=== PATIENT | female | born 1945 | race Caucasian/White ===

== ENCOUNTER 2017-03-03 07:45 | Day surgery (SDC) | payer MEDICARE ==
[2017-02-26 11:59] VITALS: BMI 27.4
[~2017-03-03 07:45] MED LIST: LACTATED RINGERS 1,000 ML IV SCH; LIDOCAINE 1% 20 ML VIAL (10MG/ML) FOR IV START INTRADERMA PRN
[2017-03-03 08:06] VITALS: RESP 16; TEMP 97.1
[2017-03-03] MEDS ORDERED: PROPOFOL 10 MG/ML 20 ML VIAL IV ONE (08:48)
--- NOTE | 2017-03-03 08:58 | P.GSHP ---
History of Present Illness H&P Date: 03/03/17 Chief Complaint: Screening colonoscopy This a 71-year-old female referred from Dr. Gastelum. Patient presents today for screening colonoscopy. She denies any significant GI complaints. - Constitutional Constitutional: Reports as per HPI Past Medical History Past Medical History: Cancer, CVA/TIA, Hyperlipidemia Additional Past Medical History / Comment(s): hx nonhodgkins lymphoma, hiatal hernia History of Any Multi-Drug Resistant Organisms: None Reported Additional Past Surgical History / Comment(s): lung surgery x2 to remove tumors , cancerous lesion removed from rt eyelid, lt eye surgery replaced tear duct Past Anesthesia/Blood Transfusion Reactions: No Reported Reaction Smoking Status: Former smoker Past Alcohol Use History: None Reported Additional Past Alcohol Use History / Comment(s): smoked 50 years 1 ppd quit 2008 Past Drug Use History: None Reported - Past Family History Father Family Medical History: Cancer Mother Additional Family Medical History / Comment(s): aneurysm Sister(s) Family Medical History: Cancer Medications and Allergies Home Medications Medication Instructions Recorded Confirmed Type Aspirin [Adult Low Dose Aspirin EC] 2 tab PO DAILY 02/26/17 03/03/17 History Atorvastatin [Lipitor] 10 mg PO Q48H 02/26/17 03/03/17 History Calcium Carbonate/Vitamin D3 1 each PO DAILY 02/26/17 03/03/17 History [Calcium 500-Vit D3 600 Tablet] Escitalopram [Lexapro] 10 mg PO DAILY 02/26/17 03/03/17 History Loratadine [Claritin] 10 mg PO HS 02/26/17 03/03/17 History Multivitamins, Thera [Multivitamin 1 tab PO DAILY 02/26/17 02/26/17 History (formulary)] [place]-3 Fatty Acids/Fish Oil [Fish 1 each PO DAILY 02/26/17 03/03/17 History Oil 1,000 mg Softgel] Ranitidine HCl [Zantac] 150 mg PO HS 02/26/17 03/03/17 History Ubidecarenone [Co Q-10] 30 mg PO DAILY 02/26/17 03/03/17 History Allergies Allergy/AdvReac Type Severity Reaction Status Date / Time No Known Allergies Allergy Verified 02/26/17 11:25 Surgical - Exam Vital Signs Temp Pulse Resp BP Pulse Ox 97.1 F L 69 16 121/81 96 05/22/17 08:05 03/03/17 08:05 03/03/17 08:05 03/03/17 08:05 03/03/17 08:05 - General well developed, no distress - Eyes PERRL - ENT normal pinna - Neck no masses - Respiratory normal expansion - Cardiovascular Rhythm: regular - Abdomen Abdomen: soft, non tender Assessment and Plan Plan: We'll perform screening colonoscopy.
--- NOTE | 2017-03-03 09:13 | P.OP ---
Date of Procedure: 03/03/17 Preoperative Diagnosis: Screening colonoscopy Postoperative Diagnosis: Internal and external hemorrhoids Procedure(s) Performed: Colonoscopy Implants: Anesthesia: MAC Surgeon: Ankit Orozco Pathology: none sent Condition: stable Disposition: PACU Indications for Procedure: Operative Findings: Description of Procedure: The patient's placed on the endoscopy table in the lateral position. She received IV sedation. Digital rectal exam was performed which revealed internal and external hemorrhoids. The flexible colonoscope was then placed patient anus and passed throughout the entire colon. The ileocecal valve was visualized. The cecum, ascending and transverse colon appeared normal. In the descending and sigmoid colon was a few scattered diverticula. Scope was brought back the rectum and this appeared normal. Scope withdrawn the patient and internal and external hemorrhoids are noted the anus.
[2017-03-03 09:40] VITALS: BP 103/75; PULSE 53
== END 2017-03-03 10:06 | disposition home or self-care (01) ==
LOC: ORWHC2ENDO 07:45
PROVIDERS: ATTEND Surgery
DX: Z12.11 Encounter for screening for malignant neoplasm of colon (principal); K57.30 Diverticulosis of large intestine without perforation or abscess without bleeding; K64.8 Other hemorrhoids; K64.4 Residual hemorrhoidal skin tags; K44.9 Diaphragmatic hernia without obstruction or gangrene; Z85.118 Personal history of other malignant neoplasm of bronchus and lung; E78.5 Hyperlipidemia, unspecified; Z86.73 Personal history of transient ischemic attack (TIA), and cerebral infarction without residual deficits; Z87.891 Personal history of nicotine dependence; Z85.72 Personal history of non-Hodgkin lymphomas; Z79.82 Long term (current) use of aspirin; Z79.899 Other long term (current) drug therapy
CPT/HCPCS: J2704; G0121; 45378

== ENCOUNTER → 2018-09-28 | Outpatient (CLI) | payer MEDICARE ==
--- NOTE | 2018-09-28 15:36 | BD ---
EXAMINATION TYPE: Axial Bone Density DATE OF EXAM: 09/28/2018 COMPARISON: 09/10/2004 CLINICAL HISTORY: 73-year-old female age-related osteoporosis Height: 61 IN Weight: 154 LBS FRAX RISK QUESTIONS: History of Fracture in Adulthood: RT WRIST FX AGE 68 RISK FACTORS HISTORY OF: History of Wrist Fracture: YES RT WRIST AGE 68 Family History of Osteoporosis: YES MOTHER Active: YES Diet low in dairy products/other sources of calcium: YES Postmenopausal woman: AGE 44 Take estrogen and/or progesterone medications: NOT NOW How long: AGE 44-48 Lost more than 2 inches in height since high school: YES 10/14" MEDICATIONS: Osteoporosis Medications: NOT NOW Which medication: Fosamax How Lon MONTHS Additional Medications: LEXAPRO, LIPITOR,RANITIDINE, LORATIDINE,ASPIRIN, ALPRAZOLAM, MULTI VIT, FISH OIL , COQ10, Additional History: NON HODGEKINS LYMPHOMA WITH RADIATION ON EYELID EXAM MEASUREMENTS: Bone mineral densitometry was performed using the [employer] System. Bone mineral density as measured about the Lumbar spine is: ----- L1-L4(G/cm2): 1.075 T Score Values are as follows: ----- L2: -0.6 ----- L3: -0.7 ----- L4: -0.2 ----- L1-L4: -0.9 Bone mineral density has: Increased 18.6% since study of: 09/10/2004 Bone mineral density about the R hip (g/cm2): 0.737 Bone mineral density about the L hip (g/cm2): 0.798 T Score values are as follows: -----R Neck: -2.2 -----L Neck: -1.7 -----R Total: -2.1 -----L Total: -1.9 Bone mineral density has: Increased 0.5% since study of: 09/10/2004 IMPRESSION: Osteopenia (T Score between -2.5 and -1). There is slightly increased risk of fracture and the patient may be considered for treatment. Re-Screen 2-5 years. NOTE: T-SCORE=SD OF THE YOUNG ADULT MEAN.
--- NOTE | 2018-09-29 11:26 | MM ---
Reason for exam: screening (asymptomatic). Last mammogram was performed 1 year ago. History: Patient is postmenopausal and has history of other cancer at age 66. Took estrogen for 10 years. Took progesterone for 10 years. Physical Findings: A clinical breast exam by your physician is recommended on an annual basis and results should be correlated with mammographic findings. MG 3D Screening Mammo W/Cad Bilateral CC and MLO view(s) were taken. Prior study comparison: September 25, 2017, bilateral MG screening mammo w CAD. August 26, 2016, bilateral MG screening mammo w CAD. There are scattered fibroglandular densities. No suspicious abnormality. No significant changes when compared with prior studies. ASSESSMENT: Negative, BI-RAD 1 RECOMMENDATION: Routine screening mammogram of both breasts in 1 year.
== END | disposition home or self-care (01) ==
LOC: RADMAMWWP 09:49
PROVIDERS: ATTEND Internal Medicine Geriatric Medicine
DX: Z12.31 Encounter for screening mammogram for malignant neoplasm of breast (principal); M85.80 Other specified disorders of bone density and structure, unspecified site; M81.0 Age-related osteoporosis without current pathological fracture
CPT/HCPCS: 77063; 77067; 77080

== ENCOUNTER → 2019-10-01 | Outpatient (CLI) | payer MEDICARE ==
--- NOTE | 2019-10-04 10:29 | MM ---
Reason for exam: screening (asymptomatic). Last mammogram was performed 1 year ago. History: Patient is postmenopausal and has history of other cancer at age 66. Took estrogen for 10 years. Took progesterone for 10 years. Physical Findings: A clinical breast exam by your physician is recommended on an annual basis and results should be correlated with mammographic findings. MG 3D Screening Mammo W/Cad Bilateral CC and MLO view(s) were taken. Prior study comparison: September 28, 2018, bilateral MG 3d screening mammo w/cad. September 25, 2017, bilateral MG screening mammo w CAD. The breast tissue is heterogeneously dense. This may lower the sensitivity of mammography. There is no discrete abnormality. No significant changes when compared with prior studies. ASSESSMENT: Negative, BI-RAD 1 RECOMMENDATION: Routine screening mammogram of both breasts in 1 year.
== END | disposition home or self-care (01) ==
LOC: RADMAMWWP 09:52
PROVIDERS: ATTEND Internal Medicine Geriatric Medicine
DX: Z12.31 Encounter for screening mammogram for malignant neoplasm of breast (principal)
CPT/HCPCS: 77063; 77067

== ENCOUNTER 2020-05-11 12:54 | Day surgery (SDC) | payer MEDICARE ==
[2020-05-10 13:21] VITALS: BMI 27.4
[~2020-05-11 12:54] MED LIST changes: +HEPARIN SODIUM,PORCINE 5,000 UNIT/ML 1 ML VIAL SQ ONE; -LACTATED RINGERS 1,000 ML IV SCH; -LIDOCAINE 1% 20 ML VIAL (10MG/ML) FOR IV START INTRADERMA PRN; +Pre Op ABX Message 1 EACH MISC MISCELLANE ONE
[2020-05-11 13:17] VITALS: TEMP 97.5
[2020-05-11] MEDS ORDERED: LIDOCAINE 1% (10MG/ML) FOR IV START INTRADERMA ONE (13:20)
[2020-05-11] MEDS ORDERED: LACTATED RINGERS 1,000 ML IV ONE (13:20)
[2020-05-11] MEDS ORDERED: ONDANSETRON 4 MG/2 ML VIAL ONE (13:23)
[2020-05-11] MEDS ORDERED: HEPARIN SODIUM,PORCINE 5,000 UNIT/ML 1 ML VIAL ONE (13:23)
[2020-05-11] MEDS ORDERED: LIDOCAINE 1% INJ 10MG/ML (20 ML MDV) ONE (14:52)
[2020-05-11] MEDS ORDERED: PROPOFOL 10 MG/ML 20 ML VIAL IV ONE (14:52)
[2020-05-11] MEDS ORDERED: MIDAZOLAM 2 MG/2 ML VIAL ONE (14:52)
[2020-05-11] MEDS ORDERED: fentaNYL (PF) 50 MCG/ML 2 ML AMP ONE (14:52)
[2020-05-11] MEDS ORDERED: SODIUM CHLORIDE 0.9% 50 ML with ceFAZolin 1,000 MG IV ONE ×2 (15:06)
[2020-05-11] MEDS ORDERED: LIDOCAINE 1%-EPI 1:100,000 20 ML VIAL SQ ONE ×2 (15:07)
--- NOTE | 2020-05-11 15:24 | P.OP ---
Date of Procedure: 05/11/20 Preoperative Diagnosis: Axillary lymphadenopathy Postoperative Diagnosis: Axillary lymphadenopathy Procedure(s) Performed: Axillary lymph node biopsy Anesthesia: local Surgeon: Candace Elias Pathology: other (Axillary lymph node) Condition: stable Disposition: same day Indications for Procedure: 74-year-old female presented to the surgical office with complaints of right axillary lesion that is concerning for a lymph node that has been enlarged for a year. She does have a previous history of malignant disease and concern is for recurrence. Plan is for lymph node biopsy for further evaluation. The patient was explained the risks, benefits and alternatives to the procedure and did provide consent prior to attending the operating suite. Operative Findings: Palpable lesion of the right axilla, most likely lymph node Description of Procedure: The patient was brought to the operating suite and placed in supine position on the operating table. Sedation was provided by anesthesia and the patient was prepped and draped in regular sterile fashion. The palpable anticipated lymph node site was noted. Local anesthetic was administered. An incision was made over the palpable lymph node site and dissection was carried to remove the lymph node from the surrounding structures. On gross examination, this did appear to be a lymph node and therefore was sent as a fresh specimen. The wound was then examined and palpated with no additional palpable lymphadenopathy. Hemostasis was maintained. The wound was irrigated and closed with 3-0 nylon suture. The patient was awakened in the operating suite and taken to postanesthesia care unit in stable condition.
[2020-05-11 15:51] VITALS: BP 116/78; PULSE 71; RESP 16
== END 2020-05-11 15:59 | disposition home or self-care (01) ==
LOC: OR 12:54
PROVIDERS: ATTEND Surgery
DX: C85.14 Unspecified B-cell lymphoma, lymph nodes of axilla and upper limb (principal); Z85.118 Personal history of other malignant neoplasm of bronchus and lung; Z85.72 Personal history of non-Hodgkin lymphomas; M19.90 Unspecified osteoarthritis, unspecified site; E78.5 Hyperlipidemia, unspecified; Z86.73 Personal history of transient ischemic attack (TIA), and cerebral infarction without residual deficits; Z98.42 Cataract extraction status, left eye; Z96.89 Presence of other specified functional implants; Z98.890 Other specified postprocedural states; Z87.39 Personal history of other diseases of the musculoskeletal system and connective tissue; Z79.899 Other long term (current) drug therapy; Z79.02 Long term (current) use of antithrombotics/antiplatelets; Z79.82 Long term (current) use of aspirin; Z80.7 Family history of other malignant neoplasms of lymphoid, hematopoietic and related tissues; Z80.1 Family history of malignant neoplasm of trachea, bronchus and lung
CPT/HCPCS: 38525; 88342; 88307; 88341; J2250; J1644; J2405; J0690; J2001; J3010; J2704

== ENCOUNTER → 2020-11-23 | Outpatient (CLI) | payer MEDICARE ==
--- NOTE | 2020-11-24 11:46 | MM ---
Reason for exam: screening (asymptomatic). Last mammogram was performed 1 year and 2 months ago. History: Patient is postmenopausal and has history of other cancer at age 66. Took estrogen for 10 years. Took progesterone for 10 years. Physical Findings: A clinical breast exam by your physician is recommended on an annual basis and results should be correlated with mammographic findings. MG 3D Screening Mammo W/Cad Bilateral CC and MLO view(s) were taken. Prior study comparison: October 01, 2019, bilateral MG 3d screening mammo w/cad. September 28, 2018, bilateral MG 3d screening mammo w/cad. The breast tissue is heterogeneously dense. This may lower the sensitivity of mammography. There is no discrete abnormality. No significant changes when compared with prior studies. ASSESSMENT: Negative, BI-RAD 1 RECOMMENDATION: Routine screening mammogram of both breasts in 1 year.
== END | disposition home or self-care (01) ==
LOC: RADMAMWWP 10:01
PROVIDERS: ATTEND Internal Medicine Geriatric Medicine
DX: Z12.31 Encounter for screening mammogram for malignant neoplasm of breast (principal)
CPT/HCPCS: 77063; 77067

== ENCOUNTER → 2021-04-19 | Outpatient (CLI) | payer MEDICARE ==
--- NOTE | 2021-04-19 17:56 | MR ---
EXAMINATION TYPE: MR orbits wo/w con DATE OF EXAM: 04/19/2021 COMPARISON: NONE HISTORY: Left orbital mass. TECHNIQUE: Multiplanar, multisequence images of the orbits are performed without and with IV contrast, utilizing 7 mL intravenous Gadavist . FINDINGS: The globes are intact bilaterally. The bilateral lens are symmetric and somewhat thin sugge sting underlying cataracts. Rectus muscles are symmetric and felt within normal limits. Slight asymme tric prominence of surrounding CSF at optic nerve insertion posterior left globe axial image 10. Intr aconal fat fairly well maintained. No enhancing masses are evident. Optic chiasm enhances in the midl ine. Suprasellar cistern is maintained. Adjacent to the left orbit involving the left foraminal and anterior ethmoid sinus with maxillary inv olvement through the superior nasal bone there is lobulated mass measuring 2.6 cm AP diameter by 1.5 cm transversely series 301 image 10 by roughly 2.0 cm craniocaudal dimension coronal image 5. This ap pears to 8 but but not invade the left orbit along the medial aspect. There is relative preservation of the left maxilla which is encased by this lesion that shows isointensity to brain parenchyma and T 2-weighted images and heterogeneous fairly prominent enhancement on postcontrast T1 weighted images. Visualized portion of brain parenchyma is unremarkable. No hydrocephalus. IMPRESSION: As above. Lobulated enhancing left-sided paranasal sinus mass should be correlated with C T to evaluate bony changes. Neoplasm suspected. Differential includes benign and malignant etiologies . Consider sampling or excision biopsy for tissue analysis.
== END | disposition home or self-care (01) ==
LOC: RADMRIMAIN 11:38
PROVIDERS: ATTEND Otolaryngology
DX: J34.89 Other specified disorders of nose and nasal sinuses (principal)
CPT/HCPCS: 70543; A9585

== ENCOUNTER → 2021-05-03 | Outpatient (CLI) | payer MEDICARE ==
--- NOTE | 2021-05-03 16:16 | CT ---
EXAMINATION TYPE: CT sinus wo con DATE OF EXAM: 05/03/2021 COMPARISON: None HISTORY: LEFT SINUS TUMOR CT DLP: [address] of the paranasal sinuses was performed in the axial and coronal planes. Bone and soft tissue settings are submitted. There is a soft tissue mass adjacent to the left nasion measuring 1.2 x 1.1 cm. Correlate for possibl e squamous cell carcinoma. Correlate clinically. There is opacification of the adjacent ethmoid air c ells. I do not see evidence for bony destruction at this time. There is also opacification of a hypoa erated left-sided frontal sinus. The remaining paranasal sinuses are well-aerated. The osteal meatal units are patent bilaterally. The nasal septum is midline. No bony destructive changes are seen within the field of view. IMPRESSION: There is a soft tissue mass adjacent to the left nasion measuring 1.2 x 1.1 cm. Correlate for possibl e squamous cell carcinoma. Correlate clinically. There is opacification of the adjacent ethmoid air c ells. I do not see evidence for bony destruction at this time. There is also opacification of a hypoa erated left-sided frontal sinus.
== END | disposition home or self-care (01) ==
LOC: RADCTMAIN 15:32
PROVIDERS: ATTEND Otolaryngology
DX: D49.1 Neoplasm of unspecified behavior of respiratory system (principal)
CPT/HCPCS: 70486

== ENCOUNTER → 2022-10-31 | Outpatient (CLI) | payer MEDICARE ==
--- NOTE | 2022-10-31 16:08 | BD ---
EXAMINATION TYPE: Axial Bone Density DATE OF EXAM: 10/31/2022 COMPARISON: 09-28-2018 CLINICAL HISTORY: 77 years year old Female. ICD-10 CODE: M810 OSTEO Height: 132LB Weight: 61IN FRAX RISK QUESTIONS: History of Fracture in Adulthood: YES Secondary Osteoporosis: 3. Menopause before 45: AT 44 RISK FACTORS HISTORY OF: History of Wrist Fracture: YES RT WRIST When: ABOUT 5 YEARS AGO Active: YES Postmenopausal woman: YES Take estrogen and/or progesterone medications: YES, NONE CURRENT How long: ABOUT 2 YEARS Lost more than 2 inches in height since high school: YES MEDICATIONS: Additional Medications: LIPITOR, ANXIETY, REFLUX MED, VITAMIN D Additional History: NON HODGKINS LYMPHOMA, CHEMO AND RADIATION 2021 FOR TUMOR IN SINUS EXAM MEASUREMENTS: Bone mineral densitometry was performed using the [employer] System. Bone mineral density as measured about the Lumbar spine is: ----- L1-L4(G/cm2): 1.139 T Score Values are as follows: ----- L1: 0.1 ----- L2: 0.0 ----- L3: -1.2 ----- L4: -0.3 ----- L1-L4: -0.3 Bone mineral density has: Decreased -0.2% since study of: 09-28-2018 Bone mineral density about the R hip (g/cm2): 0.648 Bone mineral density about the L hip (g/cm2): 0.731 T Score values are as follows: -----R Neck: -2.5 -----L Neck: -2.0 -----R Total: -2.9 -----L Total: -2.2 Bone mineral density has: Decreased -9.2% since study of: 09-28-2018 FRAX%s: The graph provided illustrates a 27.3% chance for a major osteoporotic fx and a 8.9% chance f or the hips probability for fx in 10 years time. IMPRESSION: Osteopenia (T Score between -2.5 and -1). There is slightly increased risk of fracture and the patient may be considered for treatment. Re-Screen 2-5 years. NOTE: T-SCORE=SD OF THE YOUNG ADULT MEAN.
--- NOTE | 2022-11-03 17:47 | MM ---
Reason for Exam: Screening (asymptomatic). Last mammogram was performed 1 year(s) and 11 month(s) ago. Patient History: Menarche at age 14. First Full-Term at age 18. Postmenopausal. Other cancer, age 66. Patient used Estrogen for 10 years. Patient used Progesterone for 10 years. Risk Values: Korin 5 year model risk: 1.1%. NCI Lifetime model risk: 2.0%. Prior Study Comparison: 09/28/2018 Bilateral Screening Mammogram, [facility]. 10/01/2019 Bilateral Screening Mammogram, [facility]. 11/23/2020 Bilateral Screening Mammogram, [facility]. Tissue Density: There are scattered fibroglandular densities. Findings: Analyzed By CAD. There is no suspicious group of microcalcifications or new suspicious mass in either breast. Overall Assessment: Negative, BI-RAD 1 Management: Screening Mammogram of both breasts in 1 year. 1. Patient should continue monthly self breast exams. 2. A clinical breast exam by your physician is recommended on an annual basis. 3. This exam should not preclude additional follow-up of suspicious palpable abnormalities. Electronically signed and approved by: Ermias Santoro M.D. Radiologist
== END | disposition home or self-care (01) ==
LOC: RADMAMWWP 13:29
PROVIDERS: ATTEND Internal Medicine Geriatric Medicine
DX: Z12.31 Encounter for screening mammogram for malignant neoplasm of breast (principal); M85.89 Other specified disorders of bone density and structure, multiple sites; M81.0 Age-related osteoporosis without current pathological fracture; Z78.0 Asymptomatic menopausal state; Z92.3 Personal history of irradiation
CPT/HCPCS: 77063; 77067; 77080

== ENCOUNTER → 2024-01-08 | Outpatient (CLI) | payer MEDICARE ==
--- NOTE | 2024-01-08 12:54 | MM ---
Reason for Exam: Screening (asymptomatic). Last mammogram was performed 1 year(s) and 2 month(s) ago. Patient History: Menarche at age 14. First Full-Term at age 18. Postmenopausal. Other cancer, age 66. Patient used Estrogen for 10 years. Patient used Progesterone for 10 years. Risk Values: Korin 5 year model risk: 1.1%. NCI Lifetime model risk: 1.9%. Prior Study Comparison: 08/26/2016 Bilateral Screening Mammogram, [facility]. 09/25/2017 Bilateral Screening Mammogram, [facility]. 09/28/2018 Bilateral Screening Mammogram, [facility]. 10/01/2019 Bilateral Screening Mammogram, [facility]. 11/23/2020 Bilateral Screening Mammogram, [facility]. 10/31/2022 Bilateral MG 3D screening mammo w/cad, [facility]. Tissue Density: There are scattered areas of fibroglandular density. Findings: Analyzed By CAD. The pattern is symmetrical. No significant interval change is evident. Benign vascular calcifications present bilaterally No suspicious groups of microcalcifications, spiculated or lobular masses, architectural distortion or other secondary signs of malignancy are mammographically apparent. Overall Assessment: Benign, BI-RAD 2 Management: Screening Mammogram of both breasts in 1 year. A negative mammogram report should not preclude additional follow up of suspicious palpable abnormalities. Patient should continue monthly self breast exam. A clinical breast exam by your physician is recommended on an annual basis and results should be correlated with mammographic findings. Electronically signed and approved by: Erik Sandoval D.O. Radiologis
== END | disposition home or self-care (01) ==
LOC: RADMAMWWP 10:35
PROVIDERS: ATTEND Internal Medicine Geriatric Medicine
DX: Z12.31 Encounter for screening mammogram for malignant neoplasm of breast (principal); Z78.0 Asymptomatic menopausal state
CPT/HCPCS: 77063; 77067

== ENCOUNTER → 2025-01-11 | Outpatient (CLI) | payer MEDICARE ==
--- NOTE | 2025-01-13 13:50 | MM ---
Reason for Exam: Screening (asymptomatic). Last mammogram was performed 1 year(s) and 1 month(s) ago. Patient History: Menarche at age 14. First Full-Term at age 18. Postmenopausal. Other cancer, age 66. Patient used Estrogen for 10 years. Patient used Progesterone for 10 years. Risk Values: Korin 5 year model risk: 1.1%. NCI Lifetime model risk: 1.7%. Prior Study Comparison: 11/23/2020 Bilateral Screening Mammogram, [facility]. 10/31/2022 Bilateral MG 3D screening mammo w/cad, [facility]. 01/08/2024 Bilateral MG 3D screening mammo w/cad, [facility]. Tissue Density: There are scattered areas of fibroglandular density. Findings: Analyzed By CAD. There is no suspicious group of microcalcifications or new suspicious mass in either breast. Overall Assessment: Benign, BI-RAD 2 Management: Screening Mammogram of both breasts in 1 year. . Patient should continue monthly self-breast exams. A clinical breast exam by your physician is recommended on an annual basis. This exam should not preclude additional follow-up of suspicious palpable abnormalities. Note on Korin scores and lifetime risk: 1. A Korin score greater than 3% is considered moderate risk. If this is the case, consider specialist referral to assess eligibility for a risk reducing agent. 2. If overall lifetime risk for the development of breast cancer is 20% or higher, the patient may qualify for future screening with alternating mammogram and breast MRI. [facility], , 01/11/2025 9:37 AM. Electronically signed and approved by: Terence Mendez M.D. Radiologis
== END | disposition home or self-care (01) ==
LOC: RADMAMWWP 09:24
PROVIDERS: ATTEND Internal Medicine Geriatric Medicine
DX: Z12.31 Encounter for screening mammogram for malignant neoplasm of breast (principal); R92.323 Mammographic fibroglandular density, bilateral breasts; Z78.0 Asymptomatic menopausal state
CPT/HCPCS: 77063; 77067